=== PATIENT | male | born 1945 | race Caucasian/White ===

== ENCOUNTER 2018-11-19 15:31 | Observation (INO) ==
[2018-11-19] MEDS ORDERED: HYDROmorphone 2 MG/ML VIAL IV PRN ×2 (15:44→16:32)
[2018-11-19] MEDS ORDERED: 0.9 % SODIUM CHLORIDE 1,000 ML IV SCH (15:45)
[2018-11-19] MEDS ORDERED: ONDANSETRON 4 MG ODT TABLET SL PRN ×2 (16:26→16:42)
[2018-11-19] MEDS ORDERED: MAG HYDROX/AL HYDROX/SIMETH 30 ML ORAL.SUSP PO PRN (16:26)
[2018-11-19] MEDS ORDERED: ONDANSETRON 4 MG/2 ML VIAL IV PRN (16:26)
[2018-11-19] MEDS ORDERED: OPIUM/BELLADONNA ALKALOIDS 60 MG SUPP.RECT PR PRN (16:34)
[2018-11-19] MEDS ORDERED: OXYBUTYNIN CHLORIDE 5 MG TABLET PO PRN (16:36)
[2018-11-19] MEDS ORDERED: PHENAZOPYRIDINE 200 MG TABLET PO PRN (16:39)
[2018-11-19] MEDS: HYDROmorphone 2 MG TABLET PO PRN ×2 (18:01→22:02)
[2018-11-19] MEDS: CEPHALEXIN 250 MG CAPSULE PO SCH (20:04)
--- NOTE | 2018-11-19 20:04 | History and Physical Report ---
DATE OF ADMISSION: 11/19/2018 HISTORY OF PRESENT ILLNESS: Mr. Partida is a 73-year-old gentleman, who underwent a transurethral resection of bladder tumor for bladder cancer on 11/13/2018. Postoperatively, he had a catheter placed, and on postop day #1, he removed it. That evening, he did have abdominal pain, and a Marcum catheter was placed. He did well with this, and 2 days later, he removed the catheter on his own. He started to have severe pain in the suprapubic and abdominal area. He was having bowel movements. He was seen in the emergency room. A postvoid residual was checked, and this was 0, and he was sent home on pain medications. Today, he was supposed to follow up but again had pain in the abdomen. We were supposed to see him in the office, but he went to the Emergency Room, and a CT scan was performed. This did show a small perforation of the bladder which was retroperitoneal. He is still having pain, although his bladder was drained, and he presents now for pain control. PAST MEDICAL HISTORY: Significant for anxiety, diabetes type 2, bladder cancer, aortic valve sclerosis. PAST SURGICAL HISTORY: Hernia repair, knee replacement, and the TURBT. FAMILY HISTORY: Lung disease, heart disease. SOCIAL HISTORY: He is and retired. He does not smoke and occasionally drinks. CURRENT MEDICATIONS: Include aspirin, cephalexin, hydrocodone, and tamsulosin. ALLERGIES: SULFA. REVIEW OF SYSTEMS: EYES: No cataracts. No change in vision. NEUROLOGIC: No tremors or seizures. ENDOCRINE: No diabetes. ENT: No deafness. No dizziness. RESPIRATORY: No wheezing, coughing, or asthma. PSYCHOLOGIC: No depression or mood swings. GASTROINTESTINAL: Positive suprapubic tenderness. CONSTITUTIONAL: No fevers or chills. CARDIOVASCULAR: No angina. No chest pain. LYMPHATICS: No swollen glands. PHYSICAL EXAMINATION: GENERAL: This is a pleasant gentleman in distress. NECK: Supple. Trachea is in the midline. No thyroid masses are noted. HEART: Regular rate and rhythm. LUNGS: Clear to auscultation. ABDOMEN: Soft, positive tenderness. No rebound. GENITOURINARY: Scrotum without lesion. No hydrocele, no varicocele. Epididymis without cysts. Testes normal in size and consistency. Meatus in its proper position. Marcum catheter is in place. The patient is uncircumcised; he is able to retract. His prostate is tender to palpation. Seminal vesicles without tenderness. Anus and perineum are normal. Rectum with good sphincter tone. LYMPHATICS: No adenopathy in neck or groin. SKIN: Without rashes, lesions, or ulcers. PSYCHOLOGIC: Alert and oriented times 3. IMPRESSION: The patient has bladder perforation with resultant abdominal pain. He has a Marcum catheter in, and this should help the bladder to heal. We will admit him overnight for observation for his pain control. I started him on Dilaudid. His labs are all normal. I have gone over this with his family and the patient, and they understand, and we will follow up throughout the hospital stay. TRAN:mansi Job ID: [id number] Doc ID: [id number] Jim Gaston MD
[2018-11-19] MEDS: 0.9 % SODIUM CHLORIDE 10 ML SYRINGE IV SCH (20:05)
[2018-11-19] MEDS ORDERED: TAMSULOSIN 0.4 MG CAPSULE PO SCH (21:00)
[2018-11-19] MEDS ORDERED: 0.9 % SODIUM CHLORIDE 10 ML SYRINGE IV SCH (22:00)
[2018-11-20] MEDS: HYDROmorphone 2 MG TABLET PO PRN ×2 (03:47→07:41)
[2018-11-20] MEDS: 0.9 % SODIUM CHLORIDE 10 ML SYRINGE IV SCH (05:25)
[2018-11-20] MEDS: MAGNESIUM HYDROXIDE 30 ML ORAL.SUSP PO SCH ×2 (06:42→09:02)
[2018-11-20] MEDS: CEPHALEXIN 250 MG CAPSULE PO SCH (09:01)
--- NOTE | 2018-11-20 10:29 | Discharge Plan ---
Discharge Plan - Patient/Caregiver Discharge Instructions Activity: as per physical therapy Diet: Regular Diet Additional Instructions: Resume regular diet as tolerated. Increase activity as tolerated. No heavy lifting. May shower. No soaking in tub/pool/jacuzzi. Empty becerra catheter bag as needed. Follow up appointment next week with Dr. Gaston. Your prescriptions are with your discharge information. Return to ER for fevers, pain not controlled with medication, unusual bleeding, or any other concerns. Prescriptions: Cephalexin [Keflex] 500 mg PO BID #10 cap HYDROmorphone HCL [Dilaudid] 4 - 8 mg PO Q5-6HP PRN #30 tab PRN Reason: Pain Oxybutynin Chloride [Ditropan] 5 mg PO Q6-8HP PRN #20 tab PRN Reason: urinary urgency/frequency Phenazopyridine [Pyridium] 200 mg PO TIDP PRN #30 tab PRN Reason: urinary burning - Follow up Plan Follow up with: Jim Gaston MD [Physician] - 11/28/18 9:00 am Disposition: Home, Self-Care Prognosis: Good Rehab Potential: Good
--- NOTE | 2018-11-20 10:30 | General Surgery Progress Note ---
Surgical - Auxillary Note - Subjective Patient Information: Note initiated : 11/20/18 at 10:29 am Service Date, if different from initiated Date: [] Patient: Geovanni Partida 73 y/o M admitted on 11/19/18 for Pain Management for Bladder Perf. Chief Complaint:PAIN Patient improved this am. will d/c to home.
== END 2018-11-20 10:10 | disposition home or self-care (01) ==
LOC: MEDSUR